=== PATIENT | male | born 1955 | race Caucasian/White ===

== ENCOUNTER → 2017-02-10 | Outpatient (CLI) | payer MEDICARE, MEDICAID ==
[~2017-02-10] MED LIST: CARDURA PO; CYCL-259 PO; ENAL2.5T PO; GABA300C10 PO; INSU100V13 SQ; LORA10TA75 PO; METF10002 PO; METH750T87 PO; MULT-516 PO; TRAM50TA2 PO; TRAZ100T15 PO
[2017-02-10 12:12] LABS: ASPARTATE AMINO TRANSFERASE 16 U/L (15-37); BLOOD UREA NITROGEN 17 mg/dL (7-18)
== END | disposition home or self-care (01) ==
LOC: STAR 10:34
PROVIDERS: ATTEND Urology
DX: Z01.818 Encounter for other preprocedural examination (principal); N20.0 Calculus of kidney
CPT/HCPCS: 36415; 80053; 81003; 87086; 93005

== ENCOUNTER → 2017-02-22 | Outpatient (CLI) | payer MEDICARE, MEDICAID | END | disposition home or self-care (01) | LOC: CFH 11:08 | PROVIDERS: ATTEND Urology | DX: N20.0 Calculus of kidney (principal) | CPT/HCPCS: 74000 ==

== ENCOUNTER 2017-02-23 14:25 | Day surgery (SDC) | payer MEDICARE, MEDICAID ==
[~2017-02-23] VITALS: Ht 180.3 cm; Wt 91.0 kg
[2017-02-23] MEDS ORDERED: LACTATED RINGERS 1,000 ML IV SCH (14:55)
[2017-02-23 15:00] VITALS: BP 96/87
[2017-02-23] MEDS ORDERED: MIDAZOLAM 1 MG/ML, 2ML ONE (15:57)
[2017-02-23] MEDS ORDERED: FENTANYL PF 250 MCG/5ML ONE (15:57)
[2017-02-23] MEDS ORDERED: ONDANSETRON 2MG/ML, 2ML IVPush PRN (16:00)
[2017-02-23] MEDS ORDERED: PROMETHAZINE 25 MG/ML, 1ML IV PRN (16:00)
[2017-02-23] MEDS ORDERED: hydrALAzine 20 MG/ML, 1ML IV PRN (16:00)
[2017-02-23] MEDS ORDERED: METOCLOPRAMIDE 5 MG/ML, 2ML IV PRN (16:00)
[2017-02-23] MEDS ORDERED: MEPERIDINE/PF 25MG/0.5ML IVPush PRN (16:00)
[2017-02-23] MEDS ORDERED: ACETAMINOPHEN 325 MG TABLET PO PRN (16:00)
[2017-02-23] MEDS ORDERED: OXYcodone 5 MG/5 ML ORAL.SOL UDC PO PRN (16:00)
[2017-02-23] MEDS ORDERED: MIDAZOLAM 1 MG/ML, 2ML IV PRN (16:00)
[2017-02-23] MEDS ORDERED: LABETALOL 5MG/ML, 20ML IV PRN (16:00)
[2017-02-23] MEDS ORDERED: ROCURONIUM 10 MG/ML ONE (16:41)
[2017-02-23] MEDS ORDERED: PROPOFOL 10 MG/ML, 20ML ONE (16:41)
[2017-02-23] MEDS ORDERED: SUCCINYLCHOLINE 20 MG/ML, 10ML ONE (16:41)
[2017-02-23] MEDS ORDERED: CEFAZOLIN 1,000 MG ONE (16:41)
[2017-02-23] MEDS ORDERED: ONDANSETRON 2MG/ML, 2ML ONE (16:41)
[2017-02-23] MEDS ORDERED: DEXAMETHASONE 4 MG/ML, 5ML ONE (16:41)
[2017-02-23] MEDS ORDERED: ESMOLOL 100 MG/10 ML ONE (16:41)
[2017-02-23] MEDS ORDERED: FENTANYL PF 100 MCG/2ML ONE (18:11)
[2017-02-23] MEDS ORDERED: OXYcodone 5 MG/5 ML ORAL.SOL UDC ONE (18:11)
[2017-02-23] MEDS: FENTANYL PF 100 MCG/2ML IV PRN ×2 (18:13→18:23)
[2017-02-23] MEDS ORDERED: HYDROmorphone 2 MG/ML, 1ML ONE (18:15)
[2017-02-23] MEDS: HYDROmorphone 1 MG/ML, 1ML IV PRN ×3 (18:17→18:35)
== END 2017-02-23 19:25 ==
LOC: OR 14:25
PROVIDERS: ATTEND Urology
DX: N20.0 Calculus of kidney (principal); E11.9 Type 2 diabetes mellitus without complications; G89.29 Other chronic pain
CPT/HCPCS: 50590; 82962; J0330; J0690; J1100; J1170; J2250; J2405; J2704; J3010; J7120

== ENCOUNTER → 2018-06-14 | Outpatient (CLI) | payer MEDICARE, MEDICAID ==
[~2018-06-14] MED LIST changes: +ACET1TAB52 PO; +ALBU18HF INH; +ATOR40TA78 PO; +ENAL5TAB PO; +METF500T5 PO; +SALM50DI INH; +TIZA2TAB PO; +TRAZ-137 PO; -TRAZ100T15 PO
[2018-06-14 12:13] LABS: BASOPHILS # (AUTO) 0.04 x10^3/uL (0-0.1); BASOPHILS % (AUTO) 0 % (0-1); EOSINOPHILS # (AUTO) 0.03 x10^3/uL (0-0.4); EOSINOPHILS % (AUTO) 0 % (1-7); LYMPHOCYTES # (AUTO) 2.17 x10^3/uL (1-3.4); LYMPHOCYTES % (AUTO) 18 % (22-44); MD NO; MEAN CORPUSCULAR HEMOGLOBIN 32.7 pg (27.5-34.5); MEAN CORPUSCULAR VOLUME 96.3 fL (81-97); MEAN PLATELET VOLUME 8.2 fL (7.4-10.4); MONOCYTES # (AUTO) 0.48 x10^3/uL (0.2-0.8); MONOCYTES % (AUTO) 4 % (2-9); NEUTROPHILS # (AUTO) 9.71 x10^3/uL (1.8-6.8); NEUTROPHILS % (AUTO) 78 % (42-75); PLATELET COUNT 345 x10^3/uL (130-400); RED BLOOD COUNT 4.82 x10^6/uL (4.38-5.82); RED CELL DISTRIBUTION WIDTH 13.1 % (9.4-14.8)
[2018-06-14 12:22] LABS: CALCIUM 9.1 mg/dL (8.5-10.1); CHLORIDE 107 mmol/L (98-107)
[2018-06-14 12:23] LABS: INTERNATIONAL NORMALIZED RATIO 0.98 (0.93-1.1); PROTHROMBIN TIME 10.2 Seconds (9.6-11.5)
[2018-06-14 12:28] LABS: ALANINE AMINOTRANSFERASE 26 U/L (12-78); ALBUMIN 4.3 g/dL (3.4-5.0); ALKALINE PHOSPHATASE 139 U/L (45-117); ANION GAP 3 mmol/L (5-15); BILIRUBIN,TOTAL 1.6 mg/dL (0.2-1.0); CREATININE 0.82 mg/dL (0.7-1.3); TOTAL PROTEIN 7.5 g/dL (6.4-8.2)
[2018-06-14 12:32] LABS: MICROSCOPIC NOT IND
[2018-06-14 12:33] LABS: CULTURE INDICATED? NO
== END | disposition home or self-care (01) ==
LOC: STAR 10:51
PROVIDERS: ATTEND Neurological Surgery
DX: Z01.818 Encounter for other preprocedural examination (principal); Z88.0 Allergy status to penicillin
CPT/HCPCS: 36415; 71046; 80053; 81003; 85025; 85610; 85730; 93005

== ENCOUNTER 2018-06-22 06:43 | Observation (INO) | payer MEDICARE, MEDICAID ==
[~2018-06-22] VITALS: Ht 180.3 cm; Wt 76.1 kg
[~2018-06-22 06:43] MED LIST changes: +BACITRACIN 50,000 UNIT ONE; +BUPIVACAINE 0.25% ONE; +BUPIVACAINE/PF 0.5% ONE; +EPINEPHRINE 1 MG/ML, 1ML ONE; +THROMBIN 5,000 UNIT VIAL TP ONE
[2018-06-22] MEDS ORDERED: LACTATED RINGERS 1,000 ML IV SCH (07:14)
[2018-06-22] MEDS ORDERED: FENTANYL PF 250 MCG/5ML ONE (07:56)
[2018-06-22] MEDS ORDERED: MIDAZOLAM 1 MG/ML, 2ML ONE (07:56)
[2018-06-22] MEDS ORDERED: FENTANYL PF 100 MCG/2ML ONE ×3 (08:34→11:51)
[2018-06-22] MEDS ORDERED: PROPOFOL 10 MG/ML, 20ML ONE (09:50)
[2018-06-22] MEDS ORDERED: CEFAZOLIN 1,000 MG ONE (09:50)
[2018-06-22] MEDS ORDERED: ROCURONIUM 10 MG/ML,10ML ONE (09:50)
[2018-06-22] MEDS ORDERED: SUCCINYLCHOLINE 20 MG/ML, 10ML ONE (09:50)
[2018-06-22] MEDS ORDERED: EPINEPHRINE 1 MG/ML, 1ML ONE (09:51)
[2018-06-22] MEDS ORDERED: BUPIVACAINE/PF 0.5% ONE (09:51)
[2018-06-22] MEDS ORDERED: FENTANYL PF 100 MCG/2ML EPIDPUSH ONE (11:07)
[2018-06-22] MEDS ORDERED: BUPIVACAINE/PF 0.25% EPIDPUSH ONE (11:07)
[2018-06-22] MEDS: FENTANYL PF 100 MCG/2ML IV PRN ×4 (11:45→12:05)
[2018-06-22] MEDS ORDERED: HYDROmorphone 2 MG/ML, 1ML ONE (11:51)
[2018-06-22] MEDS ORDERED: BISACODYL 10 MG SUPP PR PRN (12:00)
[2018-06-22] MEDS ORDERED: PROMETHAZINE 25 MG/ML, 1ML IV PRN (12:00)
[2018-06-22] MEDS ORDERED: HYDROcodone/APAP 5/325 TABLET PO PRN (12:00)
[2018-06-22] MEDS ORDERED: PHARMACY MAY ADJ FOR RENAL FX MC PRN (12:00)
[2018-06-22] MEDS ORDERED: hydrALAzine 20 MG/ML, 1ML IV PRN (12:00)
[2018-06-22] MEDS ORDERED: LORATADINE 10 MG TABLET PO PRN (12:00)
[2018-06-22] MEDS ORDERED: KETOROLAC 30 MG/1 ML IV PRN (12:00)
[2018-06-22] MEDS ORDERED: CYCLOBENZAPRINE 10 MG TABLET PO PRN (12:00)
[2018-06-22] MEDS ORDERED: ALBUTEROL SULFATE 2.5 MG/3 ML NPPB PRN (12:00)
[2018-06-22] MEDS ORDERED: LABETALOL 5MG/ML, 20ML IV PRN (12:00)
[2018-06-22] MEDS ORDERED: SENNA/DOCUSATE TABLET PO PRN (12:00)
[2018-06-22] MEDS ORDERED: INSULIN REGULAR 100 UNITS/ML, 3ML VIAL SQ-INSULIN PRN (12:00)
[2018-06-22] MEDS ORDERED: DIAZEPAM 5 MG/ML, 2ML IV ONE ×2 (12:00)
[2018-06-22] MEDS ORDERED: ONDANSETRON 2MG/ML, 2ML IVPush PRN ×2 (12:00)
[2018-06-22] MEDS ORDERED: OXYcodone 5 MG/5 ML ORAL.SOL UDC PO PRN (12:00)
[2018-06-22] MEDS ORDERED: OXYcodone/APAP 5/325MG TABLET PO PRN (12:00)
[2018-06-22] MEDS ORDERED: TEMPLATE NON-FORMULARY MED. (Albuterol Sulfate (Ventolin Hfa) 2 PUFFS) INH PRN (12:00)
[2018-06-22] MEDS ORDERED: METHOCARBAMOL 750 MG TABLET PO PRN (12:00)
[2018-06-22] MEDS ORDERED: PROMETHAZINE 25 MG/ML, 1ML IM PRN (12:00)
[2018-06-22] MEDS ORDERED: METOCLOPRAMIDE 5 MG/ML, 2ML IV PRN (12:00)
[2018-06-22] MEDS ORDERED: DIPHENHYDRAMINE 50 MG/ML, 1ML IVPush PRN (12:00)
[2018-06-22] MEDS: NS + 20MEQ KCL 1,000 ML IV SCH ×2 (12:00→17:09)
[2018-06-22] MEDS ORDERED: MEPERIDINE/PF 25MG/0.5ML IVPush PRN (12:00)
[2018-06-22] MEDS: HYDROmorphone 1 MG/ML, 1ML IV PRN ×4 (12:17→12:40)
[2018-06-22] MEDS ORDERED: CYCLOBENZAPRINE 10 MG TABLET ONE (12:39)
[2018-06-22] MEDS ORDERED: OXYcodone 5 MG/5 ML ORAL.SOL UDC ONE (12:39)
[2018-06-22] MEDS ORDERED: KETOROLAC 30 MG/1 ML ONE (12:48)
[2018-06-22 14:20] VITALS: BP 130/79
[2018-06-22] MEDS ORDERED: MORPHINE SULFATE 4 MG/ML, 1ML ONE (14:59)
[2018-06-22] MEDS: morphine SULFATE 10 MG/ML, 1ML IVPush PRN ×2 (15:04→20:03)
[2018-06-22] MEDS: GABAPENTIN 300 MG CAPSULE PO SCH ×2 (15:05→21:06)
[2018-06-22] MEDS: CEFAZOLIN PMX 1GM/50ML 50 ML IVPB SCH (17:09)
[2018-06-22] MEDS: HYDROcodone/APAP 10/325 MG TABLET PO PRN ×2 (17:17→21:09)
[2018-06-22 18:34] VITALS: BP 116/76
[2018-06-22] MEDS: TRAZODONE 100MG TABLET PO SCH (20:03)
[2018-06-22] MEDS: ATORVASTATIN 40 MG TABLET PO SCH (20:41)
[2018-06-22] MEDS: NICOTINE 21 MG/24 HR PATCH.TD24 TD SCH ×2 (21:00→21:06)
[2018-06-22] MEDS: SALMETEROL XINAFOATE INH SCH (21:00)
[2018-06-22] MEDS: SODIUM CHLORIDE FLUSH 10ML SYR IVF SCH (21:07)
[2018-06-22] MEDS: metFORMIN 500 MG TABLET PO SCH (21:07)
[2018-06-22] MEDS: INSULIN GLARGINE 100 UNITS/ML, PEN SQ-INSULIN SCH (21:07)
[2018-06-23 00:12] VITALS: BP 121/73
[2018-06-23] MEDS: morphine SULFATE 10 MG/ML, 1ML IVPush PRN (00:20)
[2018-06-23] MEDS: CEFAZOLIN PMX 1GM/50ML 50 ML IVPB SCH (02:08)
[2018-06-23 04:54] VITALS: BP 114/65
[2018-06-23] MEDS: HYDROcodone/APAP 10/325 MG TABLET PO PRN ×4 (06:22→21:45)
[2018-06-23 07:44] VITALS: BP 107/67
[2018-06-23] MEDS: NS + 20MEQ KCL 1,000 ML IV SCH (07:52)
[2018-06-23] MEDS: SALMETEROL XINAFOATE INH SCH (09:00)
[2018-06-23] MEDS: ENALAPRIL 5MG TABLET PO SCH (09:00)
[2018-06-23] MEDS: SODIUM CHLORIDE FLUSH 10ML SYR IVF SCH ×2 (09:00→21:00)
[2018-06-23] MEDS: MULTIVITAMIN 1 TABLET PO SCH (09:22)
[2018-06-23] MEDS: metFORMIN 500 MG TABLET PO SCH ×2 (09:22→21:47)
[2018-06-23] MEDS: INSULIN GLARGINE 100 UNITS/ML, PEN SQ-INSULIN SCH ×2 (09:22→21:00)
[2018-06-23] MEDS: GABAPENTIN 300 MG CAPSULE PO SCH ×3 (09:23→21:49)
[2018-06-23 15:42] VITALS: BP 134/78
[2018-06-23 19:27] VITALS: BP 130/81
[2018-06-23] MEDS: ATORVASTATIN 40 MG TABLET PO SCH (21:00)
[2018-06-23] MEDS: TRAZODONE 100MG TABLET PO SCH (21:46)
[2018-06-23] MEDS: NICOTINE 21 MG/24 HR PATCH.TD24 TD SCH (22:04)
[2018-06-24] MEDS: NS + 20MEQ KCL 1,000 ML IV SCH (00:10)
[2018-06-24] MEDS: SALMETEROL XINAFOATE INH SCH ×2 (00:45→07:54)
[2018-06-24 02:14] VITALS: BP 128/85
[2018-06-24] MEDS ORDERED: ENALAPRIL 10 MG TABLET ONE (07:46)
[2018-06-24] MEDS: GABAPENTIN 300 MG CAPSULE PO SCH (07:48)
[2018-06-24] MEDS: HYDROcodone/APAP 10/325 MG TABLET PO PRN (07:48)
[2018-06-24] MEDS: metFORMIN 500 MG TABLET PO SCH (07:48)
[2018-06-24] MEDS: INSULIN GLARGINE 100 UNITS/ML, PEN SQ-INSULIN SCH (07:50)
[2018-06-24] MEDS: ENALAPRIL 5MG TABLET PO SCH (07:50)
[2018-06-24] MEDS: SODIUM CHLORIDE FLUSH 10ML SYR IVF SCH (07:51)
[2018-06-24] MEDS: MULTIVITAMIN 1 TABLET PO SCH (07:54)
[2018-06-24 08:06] VITALS: BP 117/75
[2018-06-24] MEDS ORDERED: HYDR-3307 PO (12:21)
[2018-06-24] MEDS ORDERED: SULF1TAB24 PO (12:22)
[2018-06-24 13:09] VITALS: BP 124/75
== END 2018-06-24 13:05 | disposition home or self-care (01) ==
LOC: OUT 06:43 → ORIP 11:31 → 4NOR 13:34
PROVIDERS: ADMIT Neurological Surgery; ATTEND Neurological Surgery
DX: M48.07 Spinal stenosis, lumbosacral region (principal); M54.17 Radiculopathy, lumbosacral region; F17.200 Nicotine dependence, unspecified, uncomplicated; Z79.899 Other long term (current) drug therapy
CPT/HCPCS: 63047; 63048; 72100; 82962; 96365; 96366; 96372; 96375; 96376; 97161; 97166; G0378; G8978; G8979; G8980; J0171; J0330; J0690; J1170; J1815; J1885; J2250; J2270; J2405; J2704; J3010; J3360; J3480; J3490; J7120